=== PATIENT | male | born 1975 | race African-American/Black ===

== ENCOUNTER 2022-05-27 11:11 | Emergency (ER) | payer SELFPAY ==
[2022-05-27] MEDS ORDERED: Albuterol/Ipratropium 3.0-0.5 MG/3 ML Neb Soln NEB STA (11:38)
[2022-05-27] MEDS ORDERED: methylPREDNISolone Sodium Succinate 125 MG/2 ML SDV IM STA (11:38)
[2022-05-27] MEDS ORDERED: Albuterol/Ipratropium 3.0-0.5 MG/3 ML Neb Soln ONE (11:43)
== END 2022-05-27 12:20 | disposition home or self-care (01) ==
LOC: FB.ED 11:11
DX: J45.901 Unspecified asthma with (acute) exacerbation (principal); Z88.5 Allergy status to narcotic agent
CPT/HCPCS: 96372; 99281; 99285; J2930; J7620